=== PATIENT | male | born 1940 | race Caucasian/White ===

== ENCOUNTER 2021-08-05 10:10 | Outpatient (CLI) | payer MEDICARE ==
[2021-08-05 10:58] LABS: Hemoglobin 9.6 g/dL (13.5-17.5); Mean Corpuscular HGB CONC 31.6 g/dL (32.0-36.0); Mean Corpuscular Hemoglobin 31.8 pg (27.0-33.0); Mean Corpuscular Volume 100.7 fl (81.2-95.1); Mean Platelet Volume 9.9 fl (7.4-10.4); Platelet Count 238 10x3/uL (150-450); RBC Distribution Width 12.6 % (11.5-14.5); Red Blood Cell (RBC) Count 3.02 10x6/uL (4.32-5.72); White Blood Cell (WBC) Count 6.7 10x3/uL (3.5-10.5)
[2021-08-05 11:27] LABS: Anion Gap 14 mmol/L (10-20); BUN (Urea Nitrogen) 36 mg/dL (8.4-25.7); Calc. Creatinine Clearance 0 mL/min (70-130); Calcium 9.3 mg/dL (7.8-10.44); Carbon Dioxide 28 mmol/L (23-31); Chloride 102 mmol/L (98-107); Glucose 139 mg/dL (83-110); Potassium 4.6 mmol/L (3.5-5.1); Sodium 139 mmol/L (136-145)
[2021-08-05 21:19] LABS: SARS-CoV-2 PCR by NAA Not Detected (NotDetected)
== END 2021-08-05 10:11 | disposition home or self-care (01) ==
LOC: LABBT 10:10
PROVIDERS: ATTEND Thoracic Surgery (Cardiothoracic Vascular Surgery)
DX: Z01.812 Encounter for preprocedural laboratory examination (principal); Z20.822 Contact with and (suspected) exposure to COVID-19
CPT/HCPCS: 80048; 85027; U0003; U0005

== ENCOUNTER 2021-08-06 09:39 | Day surgery (SDC) | payer MEDICARE ==
[2021-08-04 13:39] VITALS: BMI 29.5
[~2021-08-06 09:39] MED LIST: Iopamidol 370 76% 50 ML VIAL FS ONE
[2021-08-06] MEDS ORDERED: Lidocaine 1% (PF) 30 ML VIAL ONE (11:39)
[2021-08-06] MEDS ORDERED: Midazolam HCl 2 mg/2 ml Vial ONE (13:19)
[2021-08-06] MEDS ORDERED: Fentanyl 100 MCG/2 ML VIAL ONE ×2 (13:20→13:44)
[2021-08-06] MEDS ORDERED: Heparin 10,000 UNITS/ 10 ML VIAL ONE (13:36)
== END 2021-08-06 19:20 | disposition home or self-care (01) ==
LOC: SDC 09:39
PROVIDERS: ATTEND Thoracic Surgery (Cardiothoracic Vascular Surgery)
PROC: B41F1ZZ Fluoroscopy of Right Lower Extremity Arteries using Low Osmolar Contrast (ICD-10-PCS; principal; 2021-08-06)
DX: I70.221 Atherosclerosis of native arteries of extremities with rest pain, right leg (principal); I65.23 Occlusion and stenosis of bilateral carotid arteries; I25.10 Atherosclerotic heart disease of native coronary artery without angina pectoris; I48.0 Paroxysmal atrial fibrillation; I10 Essential (primary) hypertension; E78.00 Pure hypercholesterolemia, unspecified; E78.2 Mixed hyperlipidemia; Z79.01 Long term (current) use of anticoagulants; Z79.02 Long term (current) use of antithrombotics/antiplatelets; Z79.899 Other long term (current) drug therapy; Z88.8 Allergy status to other drugs, medicaments and biological substances; Z95.1 Presence of aortocoronary bypass graft; Z95.5 Presence of coronary angioplasty implant and graft
CPT/HCPCS: 36247; 75710; 99152; 99153; J1644; J2001; J2250; J3010; Q9967

== ENCOUNTER 2021-08-27 08:30 | Inpatient (IN) | payer MEDICARE ==
[2021-08-27 10:02] VITALS: BMI 28.6
[2021-08-28] MEDS ORDERED: Sodium Chloride 0.9% 100 ML ONE (06:17)
[2021-08-28] MEDS ORDERED: CEFAZOLIN 2 GM VIAL ONE (06:17)
[2021-08-28] MEDS ORDERED: Lidocaine 1% MPF 2 ML VIAL ONE (06:17)
[2021-08-28] MEDS ORDERED: Heparin 5,000 UNITS/ML VIAL ONE (06:38)
[2021-08-28] MEDS ORDERED: Protamine Sulfate 50 MG/5 ML VIAL ONE (06:38)
[2021-08-28] MEDS ORDERED: fentaNYL Citrate/PF 100 MCG/2 ML SYRINGE ONE (06:39)
[2021-08-28] MEDS ORDERED: EPINEPHrine 1 MG/ML AMP ONE (06:43)
[2021-08-28] MEDS ORDERED: Bupivacaine PF 0.5% 30 ML VIAL ONE (06:43)
[2021-08-28] MEDS ORDERED: Dexamethasone 4 mg/ml Vial ONE (06:43)
[2021-08-28] MEDS ORDERED: Phenylephrine 10 MG/ML VIAL ONE (07:17)
[2021-08-28] MEDS ORDERED: Metoprolol Tartrate 5 MG/5 ML VIAL ONE (07:37)
[2021-08-28] MEDS ORDERED: PHENYLEPHRINE-NS 100 MCG/ML 10 ML SYRINGE ONE (07:37)
[2021-08-28] MEDS ORDERED: Ondansetron PF 4 MG/2 ML Vial ONE (07:37)
[2021-08-28] MEDS ORDERED: Dexamethasone 20 MG/5 ML VIAL ONE (07:37)
[2021-08-28] MEDS ORDERED: Glycopyrrolate 0.2 MG/ML 5 ML SYRINGE ONE (07:37)
[2021-08-28] MEDS ORDERED: Lidocaine 1% PF 5 ML VIAL ONE (07:37)
[2021-08-28] MEDS ORDERED: Rocuronium Bromide 10 MG/ML (10ML VIAL) ONE (07:37)
[2021-08-28] MEDS ORDERED: PROPOFOL 200 MG/20 ML VIAL ONE (07:37)
[2021-08-28] MEDS ORDERED: HYDROmorphone 2 MG/ML VIAL SLOW IVP PRN (10:17)
[2021-08-28] MEDS ORDERED: Promethazine HCl 25 MG/ML VIAL IM PRN (10:17)
[2021-08-28] MEDS ORDERED: Promethazine HCl 25 MG/ML VIAL IVPB PRN (10:17)
[2021-08-28] MEDS ORDERED: Ondansetron HCl/PF 4 MG/2 ML Vial IVP PRN (10:17)
[2021-08-28] MEDS ORDERED: Fentanyl 100 MCG/2 ML VIAL ONE ×2 (10:28→10:56)
[2021-08-28] MEDS ORDERED: Fentanyl 100 MCG/2 ML VIAL SLOW IVP PRN ×2 (14:09)
[2021-08-28] MEDS ORDERED: D5 1/2 NS w/20 mEq KCL 1,000 ML IV SCH (14:09)
[2021-08-28] MEDS ORDERED: Ondansetron PF 4 MG/2 ML Vial IVP PRN (14:09)
[2021-08-28] MEDS: CEFAZOLIN 2 GM in Sodium Chloride 0.9% 100 ML IVPB SCH (17:29)
[2021-08-28] MEDS: Gabapentin 300 MG CAP PO SCH (17:41)
[2021-08-28] MEDS: HYDROcodone/Acetaminophen 10/325 mg Tablet PO PRN (18:32)
[2021-08-28] MEDS: Atorvastatin Calcium 10 MG TAB PO SCH (20:22)
[2021-08-28] MEDS: Carvedilol 6.25 MG TAB PO SCH (20:22)
[2021-08-28] MEDS: Famotidine 20 MG TAB PO SCH (20:22)
[2021-08-28] MEDS: Mometasone 200 MCG/Formoterol 5 MCG 120 PUFF INHALER INH SCH (22:53)
[2021-08-29] MEDS: HYDROcodone/Acetaminophen 10/325 mg Tablet PO PRN ×3 (00:48→21:17)
[2021-08-29] MEDS: Gabapentin 300 MG CAP PO SCH ×4 (00:53→21:15)
[2021-08-29] MEDS: CEFAZOLIN 2 GM in Sodium Chloride 0.9% 100 ML IVPB SCH ×2 (00:53→08:43)
[2021-08-29] MEDS: Mometasone 200 MCG/Formoterol 5 MCG 120 PUFF INHALER INH SCH ×2 (07:01→20:13)
[2021-08-29] MEDS: Famotidine 20 MG TAB PO SCH ×2 (08:42→21:16)
[2021-08-29] MEDS: Allopurinol 100 MG TAB PO SCH (08:42)
[2021-08-29] MEDS: Clopidogrel Bisulfate 75 MG TAB PO SCH (08:43)
[2021-08-29] MEDS: Carvedilol 6.25 MG TAB PO SCH ×2 (08:43→21:17)
[2021-08-29] MEDS: Amlodipine 10 MG TAB PO SCH (08:43)
[2021-08-29] MEDS: Lisinopril 20 MG TAB PO SCH (08:43)
[2021-08-29] MEDS: Furosemide 20 MG TAB PO SCH (08:43)
[2021-08-29] MEDS ORDERED: Aspirin Chewable 81 MG TAB PO SCH (09:00)
[2021-08-29] MEDS ORDERED: Bisacodyl 5 MG TAB PO PRN (10:07)
[2021-08-29] MEDS: ALPRAZolam 0.5 MG TAB PO PRN (14:39)
[2021-08-29] MEDS: Atorvastatin Calcium 10 MG TAB PO SCH (21:15)
[2021-08-30] MEDS: ALPRAZolam 0.5 MG TAB PO PRN (01:38)
[2021-08-30] MEDS: Acetaminophen 325 MG TAB PO PRN ×2 (01:40→22:32)
[2021-08-30] MEDS: Mometasone 200 MCG/Formoterol 5 MCG 120 PUFF INHALER INH SCH ×2 (06:29→19:26)
[2021-08-30] MEDS: Gabapentin 300 MG CAP PO SCH ×3 (09:04→20:46)
[2021-08-30] MEDS: Famotidine 20 MG TAB PO SCH ×2 (09:04→20:48)
[2021-08-30] MEDS: Polyethylene Glycol 3350 17 GM Packet PO SCH (09:04)
[2021-08-30] MEDS: Allopurinol 100 MG TAB PO SCH (09:04)
[2021-08-30] MEDS: Amlodipine 10 MG TAB PO SCH (09:04)
[2021-08-30] MEDS: Carvedilol 6.25 MG TAB PO SCH ×2 (09:04→20:47)
[2021-08-30] MEDS: Clopidogrel Bisulfate 75 MG TAB PO SCH (09:04)
[2021-08-30] MEDS: Lisinopril 20 MG TAB PO SCH (09:04)
[2021-08-30] MEDS: Furosemide 20 MG TAB PO SCH (09:04)
[2021-08-30] MEDS: HYDROcodone/Acetaminophen 10/325 mg Tablet PO PRN (19:32)
[2021-08-30] MEDS: Apixaban 2.5 MG TAB PO SCH (20:48)
[2021-08-30] MEDS: Atorvastatin Calcium 10 MG TAB PO SCH (20:48)
[2021-08-31] MEDS: ALPRAZolam 0.5 MG TAB PO PRN (00:54)
[2021-08-31] MEDS: HYDROcodone/Acetaminophen 10/325 mg Tablet PO PRN (01:33)
[2021-08-31] MEDS: Mometasone 200 MCG/Formoterol 5 MCG 120 PUFF INHALER INH SCH ×2 (07:01→18:40)
[2021-08-31] MEDS: Gabapentin 300 MG CAP PO SCH ×3 (08:13→20:10)
[2021-08-31] MEDS: Allopurinol 100 MG TAB PO SCH (08:14)
[2021-08-31] MEDS: Clopidogrel Bisulfate 75 MG TAB PO SCH (08:14)
[2021-08-31] MEDS: Carvedilol 6.25 MG TAB PO SCH ×2 (08:14→20:11)
[2021-08-31] MEDS: Amlodipine 10 MG TAB PO SCH (08:14)
[2021-08-31] MEDS: Lisinopril 20 MG TAB PO SCH (08:14)
[2021-08-31] MEDS: Famotidine 20 MG TAB PO SCH (08:14)
[2021-08-31] MEDS: Apixaban 2.5 MG TAB PO SCH ×2 (08:14→20:10)
[2021-08-31] MEDS: Polyethylene Glycol 3350 17 GM Packet PO SCH (08:14)
[2021-08-31] MEDS: Furosemide 20 MG TAB PO SCH (08:15)
[2021-08-31] MEDS: Acetaminophen 325 MG TAB PO PRN (20:11)
[2021-08-31] MEDS: Atorvastatin Calcium 10 MG TAB PO SCH (20:11)
[2021-08-31] MEDS ORDERED: Apixaban 2.5 MG TAB PO SCH (21:00)
[2021-09-01] MEDS: ALPRAZolam 0.5 MG TAB PO PRN (01:28)
[2021-09-01] MEDS: Melatonin 3 MG TAB PO PRN (01:28)
[2021-09-01] MEDS: Mometasone 200 MCG/Formoterol 5 MCG 120 PUFF INHALER INH SCH ×2 (07:09→19:21)
[2021-09-01] MEDS: Carvedilol 6.25 MG TAB PO SCH ×2 (10:40→22:23)
[2021-09-01] MEDS: Apixaban 2.5 MG TAB PO SCH ×2 (10:40→22:24)
[2021-09-01] MEDS: Gabapentin 300 MG CAP PO SCH ×3 (10:40→22:22)
[2021-09-01] MEDS: Clopidogrel Bisulfate 75 MG TAB PO SCH (10:40)
[2021-09-01] MEDS: Amlodipine 10 MG TAB PO SCH (10:40)
[2021-09-01] MEDS: Famotidine 20 MG TAB PO SCH (10:40)
[2021-09-01] MEDS: Allopurinol 100 MG TAB PO SCH (10:40)
[2021-09-01] MEDS: Furosemide 20 MG TAB PO SCH (10:40)
[2021-09-01] MEDS: Lisinopril 20 MG TAB PO SCH (10:41)
[2021-09-01] MEDS: Polyethylene Glycol 3350 17 GM Packet PO SCH (10:41)
[2021-09-01] MEDS: HYDROcodone/Acetaminophen 10/325 mg Tablet PO PRN ×2 (11:26→22:23)
[2021-09-01] MEDS: Atorvastatin Calcium 10 MG TAB PO SCH (22:24)
[2021-09-02] MEDS: ALPRAZolam 0.5 MG TAB PO PRN (01:17)
[2021-09-02] MEDS: Melatonin 3 MG TAB PO PRN (01:18)
[2021-09-02] MEDS: Mometasone 200 MCG/Formoterol 5 MCG 120 PUFF INHALER INH SCH (07:33)
[2021-09-02] MEDS: Gabapentin 300 MG CAP PO SCH (09:18)
[2021-09-02] MEDS: Apixaban 2.5 MG TAB PO SCH (09:18)
[2021-09-02] MEDS: Famotidine 20 MG TAB PO SCH (09:18)
[2021-09-02] MEDS: Allopurinol 100 MG TAB PO SCH (09:18)
[2021-09-02] MEDS: Carvedilol 6.25 MG TAB PO SCH (09:18)
[2021-09-02] MEDS: Amlodipine 10 MG TAB PO SCH (09:18)
[2021-09-02] MEDS: Acetaminophen 325 MG TAB PO PRN (09:18)
[2021-09-02] MEDS: Lisinopril 20 MG TAB PO SCH (09:18)
[2021-09-02] MEDS: Furosemide 20 MG TAB PO SCH (09:19)
[2021-09-02] MEDS: Polyethylene Glycol 3350 17 GM Packet PO SCH (09:19)
[2021-09-02] MEDS: Clopidogrel Bisulfate 75 MG TAB PO SCH (09:19)
[2021-09-02 13:29] VITALS: BP 150/63; TEMP 98.6
== END 2021-09-02 15:00 | DRG 254 ==
LOC: SURG A 08-28 05:47 → 2NO 08-28 12:53
PROVIDERS: ADMIT Thoracic Surgery (Cardiothoracic Vascular Surgery); ATTEND Thoracic Surgery (Cardiothoracic Vascular Surgery)
PROC: 041K0JL Bypass Right Femoral Artery to Popliteal Artery with Synthetic Substitute, Open Approach (ICD-10-PCS; principal; 2021-08-28)
DX: I70.221 Atherosclerosis of native arteries of extremities with rest pain, right leg (principal); Z20.822 Contact with and (suspected) exposure to COVID-19; I25.10 Atherosclerotic heart disease of native coronary artery without angina pectoris; I48.0 Paroxysmal atrial fibrillation; I65.23 Occlusion and stenosis of bilateral carotid arteries; I10 Essential (primary) hypertension; E78.00 Pure hypercholesterolemia, unspecified; Z79.899 Other long term (current) drug therapy; Z79.01 Long term (current) use of anticoagulants; Z79.02 Long term (current) use of antithrombotics/antiplatelets; Z95.1 Presence of aortocoronary bypass graft; Z95.5 Presence of coronary angioplasty implant and graft; Z88.6 Allergy status to analgesic agent
CPT/HCPCS: 36415; 86850; 86900; 86901; 93005; 93010; C1713; C1776; C1786; J0171; J1100; J1642; J1644; J2370; J2405; J2704; J2720; J3010; J3480; J3490; S0020

== ENCOUNTER 2021-08-27 10:22 | Outpatient (CLI) | payer MEDICARE, OTHER ==
[2021-08-27 18:15] LABS: SARS-CoV-2 PCR by NAA Not Detected (NotDetected)
== END 2021-08-27 10:23 | disposition home or self-care (01) ==
LOC: LABBT 10:22
PROVIDERS: ATTEND Thoracic Surgery (Cardiothoracic Vascular Surgery)
DX: I73.9 Peripheral vascular disease, unspecified (principal); Z20.822 Contact with and (suspected) exposure to COVID-19
CPT/HCPCS: U0003; U0005; 86850; 86900; 86901

== ENCOUNTER 2021-10-08 19:55 | Observation (INO) | payer MEDICARE ==
[2021-10-08 20:47] LABS: #Eosinphils 0.2 thou/uL (0.0-0.7); #Lymphocytes 1.8 thou/uL (1.20-3.40); #Monocytes 0.6 thou/uL (0.11-0.59); #Neutrophils 5.3 thou/uL (1.40-6.50); %Basophils 0.4 % (0.0-1.0); %Lymphocytes 22.5 % (21.0-51.0); %Monocytes 7.9 % (0.0-10.0); %Neutrophils 66.2 % (42.0-75.0); Hemoglobin 8.1 g/dL (14.0-18.0); Mean Corpuscular HGB CONC 31.6 g/dL (32.0-36.0); Mean Corpuscular Hemoglobin 32.9 pg (27.0-31.0); Platelet Count 311 thou/uL (130-400); RBC Distribution Width 13.5 % (11.5-14.5); Red Blood Cell (RBC) Count 2.45 mill/uL (4.70-6.10)
[2021-10-08 20:50] LABS: Bilirubin Negative (Negative); Blood, Urine Negative (Negative); Clarity Clear (Clear); Glucose, Urine (Dipstick) Normal (Negative); Ketone, Urine Negative (Negative); Leukocyte Negative Leu/uL (Negative); Nitrite Negative (Negative); Protein, Urine (Dipstick) Negative (Neg-Trace); Specific Gravity, Urine 1.015 (1.002-1.036); Urobilinogen Normal mg/dL (Less than 2)
[2021-10-08 21:35] LABS: ALT (SGPT) 7 U/L (8-55); AST (SGOT) 9 U/L (5-34); Albumin 3.8 g/dL (3.4-4.8); Alkaline Phosphatase 111 U/L (40-110); Anion Gap 15 mmol/L (10-20); BUN (Urea Nitrogen) 45 mg/dL (8.4-25.7); Bilirubin, Total 0.4 mg/dL (0.2-1.2); Calc. Creatinine Clearance 0 mL/min (70-130); Calcium 9.3 mg/dL (7.8-10.44); Carbon Dioxide 25 mmol/L (23-31); Chloride 104 mmol/L (98-107); Estimated GFR 19; Globulin 3.3 g/dL (2.4-3.5); Glucose 107 mg/dL (83-110); Potassium 4.4 mmol/L (3.5-5.1); Protein, Total 7.1 g/dL (5.8-8.1); Sodium 140 mmol/L (136-145)
[2021-10-08 22:45] LABS: CKMB 0.9 ng/mL (0-6.6)
[2021-10-08] MEDS ORDERED: HYDROcodone/Acetaminophen 5/325 mg Tablet ONE (23:42)
[2021-10-08] MEDS ORDERED: Gabapentin 300 MG CAP PO SCH (23:45)
[2021-10-09] MEDS ORDERED: HYDROcodone/Acetaminophen 10/325 mg Tablet PO PRN (00:05)
[2021-10-09] MEDS ORDERED: Gabapentin 300 MG CAP PO SCH (00:15)
[2021-10-09 00:21] LABS: Troponin I 0.094 ng/mL (< 0.028)
[2021-10-09 00:36] VITALS: BMI 27.2
[2021-10-09] MEDS ORDERED: Acetaminophen 325 MG TAB PO PRN (02:03)
[2021-10-09] MEDS ORDERED: Ondansetron PF 4 MG/2 ML Vial IVP PRN (02:03)
[2021-10-09] MEDS ORDERED: Acetaminophen 650 MG Suppository PR PRN (02:03)
[2021-10-09] MEDS: Sodium Chloride 0.9% 1,000 ML IV SCH ×4 (02:46→23:51)
[2021-10-09 03:07] LABS: Troponin I 0.097 ng/mL (< 0.028)
[2021-10-09 04:45] LABS: #Basophils 0.1 thou/uL (0.0-0.2); #Eosinphils 0.2 thou/uL (0.0-0.7); #Lymphocytes 1.7 thou/uL (1.20-3.40); #Monocytes 0.5 thou/uL (0.11-0.59); #Neutrophils 5.6 thou/uL (1.40-6.50); %Basophils 0.7 % (0.0-1.0); %Lymphocytes 20.4 % (21.0-51.0); %Monocytes 6.6 % (0.0-10.0); %Neutrophils 69.3 % (42.0-75.0); Hemoglobin 7.3 g/dL (14.0-18.0); Mean Corpuscular HGB CONC 33.1 g/dL (32.0-36.0); Mean Platelet Volume 8.3 fL (7.4-10.4); Platelet Count 290 thou/uL (130-400); RBC Distribution Width 13.3 % (11.5-14.5); Red Blood Cell (RBC) Count 2.14 mill/uL (4.70-6.10); White Blood Cell (WBC) Count 8.1 thou/uL (4.8-10.8)
[2021-10-09 05:58] LABS: Anion Gap 15 mmol/L (10-20); BUN (Urea Nitrogen) 41 mg/dL (8.4-25.7); Calc. Creatinine Clearance 24 mL/min (70-130); Calcium 9.1 mg/dL (7.8-10.44); Carbon Dioxide 24 mmol/L (23-31); Chloride 106 mmol/L (98-107); Estimated GFR 23; Glucose 99 mg/dL (83-110); Iron 16 ug/dL (65-175); Iron Binding Capacity, Total 194 mcg/dL (261-462); Potassium 4.2 mmol/L (3.5-5.1); Sodium 141 mmol/L (136-145)
[2021-10-09 06:01] LABS: Iron 18 ug/dL (65-175); Iron Binding Capacity, Total 191 mcg/dL (261-462)
[2021-10-09] MEDS: Gabapentin 300 MG CAP PO SCH ×2 (08:16→20:21)
[2021-10-09] MEDS ORDERED: ALPRAZolam 0.25 MG TAB PO PRN (16:26)
[2021-10-09] MEDS: Cilostazol 100 MG TAB PO SCH (17:17)
[2021-10-09] MEDS: Carvedilol 6.25 MG TAB PO SCH (17:17)
[2021-10-09] MEDS: Mometasone 200 MCG/Formoterol 5 MCG 120 PUFF INHALER INH SCH (18:57)
[2021-10-09] MEDS: Apixaban 2.5 MG TAB PO SCH (20:22)
[2021-10-09] MEDS ORDERED: Amiodarone 200 MG TAB PO SCH (21:00)
[2021-10-09] MEDS ORDERED: Atorvastatin Calcium 10 MG TAB PO SCH (21:00)
[2021-10-09] MEDS ORDERED: Famotidine 20 MG TAB PO SCH (21:00)
[2021-10-10 05:12] LABS: #Eosinphils 0.2 thou/uL (0.0-0.7); #Lymphocytes 2.2 thou/uL (1.20-3.40); #Monocytes 0.7 thou/uL (0.11-0.59); #Neutrophils 6.4 thou/uL (1.40-6.50); %Basophils 0.1 % (0.0-1.0); %Eosinophils 2.4 % (0.0-10.0); %Lymphocytes 23.1 % (21.0-51.0); %Neutrophils 67.4 % (42.0-75.0); Hemoglobin 7.8 g/dL (14.0-18.0); Mean Corpuscular HGB CONC 31.9 g/dL (32.0-36.0); Mean Platelet Volume 7.9 fL (7.4-10.4); Platelet Count 286 thou/uL (130-400); RBC Distribution Width 13.5 % (11.5-14.5); Red Blood Cell (RBC) Count 2.36 mill/uL (4.70-6.10); White Blood Cell (WBC) Count 9.5 thou/uL (4.8-10.8)
[2021-10-10 05:37] LABS: Anion Gap 13 mmol/L (10-20); BUN (Urea Nitrogen) 27 mg/dL (8.4-25.7); Calc. Creatinine Clearance 34 mL/min (70-130); Carbon Dioxide 23 mmol/L (23-31); Chloride 109 mmol/L (98-107); Estimated GFR 34; Glucose 109 mg/dL (83-110); Potassium 4.2 mmol/L (3.5-5.1); Sodium 141 mmol/L (136-145)
[2021-10-10] MEDS: Mometasone 200 MCG/Formoterol 5 MCG 120 PUFF INHALER INH SCH (07:50)
[2021-10-10] MEDS: Cilostazol 100 MG TAB PO SCH (08:03)
[2021-10-10] MEDS: Carvedilol 6.25 MG TAB PO SCH (08:04)
[2021-10-10] MEDS: Apixaban 2.5 MG TAB PO SCH (08:04)
[2021-10-10] MEDS: Gabapentin 300 MG CAP PO SCH (08:04)
[2021-10-10] MEDS ORDERED: Allopurinol 100 MG TAB PO SCH (09:00)
[2021-10-10] MEDS ORDERED: Clopidogrel Bisulfate 75 MG TAB PO SCH (09:00)
[2021-10-10] MEDS ORDERED: Amlodipine 5 MG TAB PO SCH (09:00)
[2021-10-10 12:35] VITALS: BP 150/78; TEMP 98.3
== END 2021-10-10 12:20 | disposition home or self-care (01) ==
LOC: ERS 19:55 → NEURO 22:37
PROVIDERS: ADMIT Internal Medicine; ATTEND Internal Medicine
DX: I12.9 Hypertensive chronic kidney disease with stage 1 through stage 4 chronic kidney disease, or unspecified chronic kidney disease (principal); N18.9 Chronic kidney disease, unspecified; N17.9 Acute kidney failure, unspecified; D63.1 Anemia in chronic kidney disease; E86.0 Dehydration; I48.91 Unspecified atrial fibrillation; G89.29 Other chronic pain; M54.9 Dorsalgia, unspecified; I25.2 Old myocardial infarction; I73.9 Peripheral vascular disease, unspecified; J44.9 Chronic obstructive pulmonary disease, unspecified; M10.9 Gout, unspecified; G62.9 Polyneuropathy, unspecified; E78.5 Hyperlipidemia, unspecified; Z87.891 Personal history of nicotine dependence; Z79.01 Long term (current) use of anticoagulants; Z79.02 Long term (current) use of antithrombotics/antiplatelets; Z79.899 Other long term (current) drug therapy; Z88.6 Allergy status to analgesic agent; Z95.818 Presence of other cardiac implants and grafts; Z20.822 Contact with and (suspected) exposure to COVID-19
CPT/HCPCS: 76770; 80048 ×2; 80053; 81003; 82553; 82728; 83540; 83550; 84484 ×3; 85025 ×3; 93005; 94640 ×2; 94664; 99285; U0003; U0005; 36415; 96360; 96361; G0378; J7050